=== PATIENT | male | born 1950 | race Caucasian/White ===

== ENCOUNTER 2022-10-23 20:58 | Emergency (ER) | payer MEDICARE, BC ==
[~2022-10-23] VITALS: Ht 170.2 cm; Wt 68.0 kg
[2022-10-23] MEDS ORDERED: ATOR10TA PO (21:09)
--- NOTE | 2022-10-23 21:35 | NUR ---
Dr. Zarco at bedside for MSE.
--- NOTE | 2022-10-23 21:58 | NUR ---
Xray at bedside.
[2022-10-23] MEDS ORDERED: ONDANSETRON ODT 4 MG TAB.RAPDIS ONE (22:12)
[2022-10-23] MEDS ORDERED: HYDROMORPHONE 2 MG/1 ML DISP.SYRIN ONE (22:12)
[2022-10-23] MEDS ORDERED: HYDR-3980 PO (22:32)
[2022-10-23] MEDS ORDERED: NEOMY/BACITRA/POLYMYXIN B OINT UD PACKET TP ONE (22:39)
[2022-10-23] MEDS: ONDANSETRON ODT 4 MG TAB.RAPDIS SL ONE (22:54)
[2022-10-23] MEDS: HYDROMORPHONE 1 MG/1 ML DISP.SYRIN IM ONE (22:54)
--- NOTE | 2022-10-23 23:14 | NUR ---
Patient discharged to home in stable condition. Written and verbal after care instructions given. Patient verbalizes understanding of instructions. Stressed follow up or return to ER for worsening s/s. Patient out of ER via wheelchair, no acute signs of distress, VSS, all belongings taken, provided with copies of xray results, and CD of images, to be driven home by family via private vehicle.
[2022-10-23 23:15] VITALS: BP 152/78
== END 2022-10-23 23:15 | disposition home or self-care (01) ==
LOC: ER 21:00
DX: S82.144A Nondisplaced bicondylar fracture of right tibia, initial encounter for closed fracture (principal); E78.5 Hyperlipidemia, unspecified; Z79.899 Other long term (current) drug therapy; W22.8XXA Striking against or struck by other objects, initial encounter; Y93.89 Activity, other specified; Y92.89 Other specified places as the place of occurrence of the external cause; Y99.8 Other external cause status
CPT/HCPCS: 99283; 29505; 73564; 96372; J1170; A4663; Q0162